=== PATIENT | female | born 1960 | race Caucasian/White ===

== ENCOUNTER → 2017-03-11 | Outpatient (CLI) | payer BC ==
--- NOTE | 2017-03-11 17:28 | DIAGNOSTIC IMAGING REPORT ---
R HAND MIN 3 VIEWS ROUTINE HISTORY: 56 years-old Female FOREIGN BODY OF RIGHT HAND patient reports a palpable abnormality near the right second PIP joint COMPARISON: None available TECHNIQUE: 3 views of the right hand FINDINGS: Mild periarticular osteopenia. Mild to moderate triscaphe and first carpometacarpal osteoarthritis with subchondral sclerosis and subcortical cystic change. Mild interphalangeal degenerative changes are noted throughout all the digits. No acute fracture, dislocation or foreign body identified. IMPRESSION: 1. No acute fracture or subluxation. 2. No radiopaque foreign body identified. 3. Mild to moderate degenerative changes about the hand and wrist with mild periarticular osteopenia. The above report was generated using voice recognition software. It may contain grammatical, syntax or spelling errors. Electronically signed by: Jonathan Mendez M.D. 03/11/2017 5:27 PM Dictated Date/Time: 03/11/2017 5:24 PM
== END | disposition home or self-care (01) ==
LOC: C.RAD1850 16:39
PROVIDERS: ATTEND Internal Medicine
DX: S60.551A Superficial foreign body of right hand, initial encounter (principal); X58.XXXA Exposure to other specified factors, initial encounter

== ENCOUNTER → 2017-07-21 | Outpatient (CLI) | payer BC | END | disposition home or self-care (01) | LOC: C.PATHSPEC 17:27 | PROVIDERS: ATTEND Physician Assistant | DX: D23.5 Other benign neoplasm of skin of trunk (principal); L57.0 Actinic keratosis ==

== ENCOUNTER → 2017-10-29 | Outpatient (CLI) | payer BC | END | disposition home or self-care (01) | LOC: C.PATHSPEC 17:27 | PROVIDERS: ATTEND Surgery | DX: D23.62 Other benign neoplasm of skin of left upper limb, including shoulder (principal) ==

== ENCOUNTER 2022-09-29 06:02 | Observation (INO) ==
--- NOTE | 2022-08-26 11:58 | PAT Medication Instructions ---
Medication Instructions Date of Service August 26, 2022 Home Medications Medication Instructions Recorded fluticasone furoate 27.5 2 sprays intranasal DAILY PRN 05/23/20 mcg/actuation nasal nasal congestion #5.9 mL spray,suspension (Flonase Sensimist) nmekafxslw-tnwphvxcfprif-eqkxdnmk 1 - 2 tab PO BID PRN headache #40 08/12/22 50 mg-325 mg-40 mg tablet tabs triamcinolone acetonide 0.5 % 1 applic topical BID #15 grams 08/20/22 topical cream calcium carbonate 600 mg calcium (1,500 mg) tablet 600 mg PO BID cetirizine 10 mg tablet 10 mg PO HS PRN Allergic Symptoms fluticasone furoate 27.5 mcg/actuation nasal spray,suspension (Flonase Sensimist) 2 sprays intranasal DAILY PRN nasal congestion ascorbic acid (vitamin C) 500 mg tablet (Vitamin C) 500 mg PO QAM ibuprofen 200 mg tablet 400 mg PO Q6H PRN Pain multivitamin 1 tab PO QAM ocrbspromh-vqqluepfgnlup-mskmbkgs 50 mg-325 mg-40 mg tablet 1 - 2 tab PO BID PRN headache triamcinolone acetonide 0.5 % topical cream 1 applic topical BID baclofen 10 mg tablet 10 mg PO HS PRN Muscle Spasm duloxetine 60 mg capsule,delayed release 60 mg PO HS ASK your surgeon for instructions ibuprofen 200 mg tablet 400 mg PO Q6H PRN Pain STOP taking 24 hours before surgery triamcinolone acetonide 0.5 % topical cream 1 applic topical BID DO NOT take the morning of surgery calcium carbonate 600 mg calcium (1,500 mg) tablet 600 mg PO BID ascorbic acid (vitamin C) 500 mg tablet (Vitamin C) 500 mg PO QAM multivitamin 1 tab PO QAM baclofen 10 mg tablet 10 mg PO HS PRN Muscle Spasm Take morning of surgery With a small sip of water, OTHERWISE NOTHING TO EAT OR DRINK AFTER MIDNIGHT: fluticasone furoate 27.5 mcg/actuation nasal spray,suspension (Flonase Sensimist) 2 sprays intranasal DAILY PRN nasal congestion iqwhwzdhsl-lhwohsccrtvhs-klwvwqzz 50 mg-325 mg-40 mg tablet 1 - 2 tab PO BID PRN headache (if needed) Take evening before surgery calcium carbonate 600 mg calcium (1,500 mg) tablet 600 mg PO BID cetirizine 10 mg tablet 10 mg PO HS PRN Allergic Symptoms (if needed) fluticasone furoate 27.5 mcg/actuation nasal spray,suspension (Flonase Sensimis t) 2 sprays intranasal DAILY PRN nasal congestion (if needed) utbgeoffii-twhjbsjlthvtq-jorctkxc 50 mg-325 mg-40 mg tablet 1 - 2 tab PO BID PRN headache (if needed) baclofen 10 mg tablet 10 mg PO HS PRN Muscle Spasm (if needed) duloxetine 60 mg capsule,delayed release 60 mg PO HS Other Notes If you have any questions please call us at [phone] or [phone] or [phone] or [phone]
--- NOTE | 2022-09-02 09:36 | Anesthesiology Consultation ---
Date of Service September 02, 2022 Assessment & Plan (1) Encounter for pre-operative examination: - COVID screening: Per assessment on 09/02: Travel screen negative. Patient vaccinated. At surgeon discretion if preop Covid testing being done. Patient reports that 8 days ago (09/25) she had Covid exposure at outdoor gathering (person tested Covid positive the following day). Patient has remained asymptomatic and has had negative Covid home tests since. Covid test done at PAT 09/02/22 was negative. Patient able to proceed with surgery as scheduled without further preop Covid testing done as long as patient remains asymptomatic. She was advised to contact PAT/surgeon if development of symptoms prior to surgery. - Outpatient joint assessment: Pt currently scheduled for inpatient pathway. If surgeon requests review for outpatient joint pathway, patient is an acceptable candidate for outpatient joint program from anesthesia standpoint. Chart Review Chart Review: Acceptable Risk for Surgery and Patient seen in Pre Admission Testing Teaching & Discussion Pre-Anesthesia Teaching/Discussion Notes: Instructed NPO after midnight before surgery,except medications with 15 cc of water. Medication instructions provided according to the PAT guidelines. History Surgery Operation Date: 09/29/22 07:00 Proposed Procedures p Right Total Knee Arthroplasty - Rikki Padilla, Height/Weight Height: 5 ft 4 in Weight: 80.6 kg Allergies Allergy/AdvReac Type Severity Reaction Status Date / Time meperidine AdvReac Intermediate Headache Verified 08/20/22 15:14 oxycodone [From Percocet] AdvReac Mild N/V Verified 09/01/22 10:36 Medications Home Medications Medication Instructions Recorded Confirmed Last Taken calcium carbonate 600 mg calcium 600 mg PO BID 09/14/18 08/22/22 09/11/20 18:00 (1,500 mg) tablet cetirizine 10 mg tablet 10 mg PO HS PRN Allergic Symptoms 09/14/18 08/22/22 Unknown #30 tabs fluticasone furoate 27.5 2 sprays intranasal DAILY PRN 05/23/19 08/22/22 Unknown mcg/actuation nasal nasal congestion #5.9 mL spray,suspension (Flonase Sensimist) ascorbic acid (vitamin C) 500 mg 500 mg PO QAM 08/22/20 08/22/22 09/11/20 08:00 tablet (Vitamin C) ibuprofen 200 mg tablet 400 mg PO Q6H PRN Pain 05/26/21 05/26/23 06/14/21 18:00 multivitamin 1 tab PO QAM 08/22/20 08/22/22 09/11/20 08:00 cmwrsmjhfw-znzmngkirxnsg-gclzlpfs 1 - 2 tab PO BID PRN headache #40 08/12/22 08/22/22 Unknown 50 mg-325 mg-40 mg tablet tabs triamcinolone acetonide 0.5 % 1 applic topical BID #15 grams 08/20/22 08/22/22 Unknown topical cream baclofen 10 mg tablet 10 mg PO HS PRN Muscle Spasm 08/22/22 08/22/22 Unknown duloxetine 60 mg capsule,delayed 60 mg PO HS 08/22/22 08/22/22 Unknown release Past Medical History Medical History Anxiety Asthma Stable Degeneration of cervical intervertebral disc Depression Dermatofibroma of back s/p removal Disc degeneration, lumbar History of gastroesophageal reflux (GERD) No current issues History of squamous cell carcinoma Migraine headache Hx Osteoarthritis Osteopenia Tinnitus TMJ syndrome + clicking, 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 Exercise / Class Metabolic Activity II 4-5 Yardwork/Stairs/Walk up hill (one FS (no CP, no SOB)) Past Family History Family History Grandfather (Maternal) Myocardial infarction Cancer Diphtheria Poliomyelitis Migraine Brother Allergic rhinitis FHx: allergies Father FHx: allergies Asthma Atrial fibrillation Sinus disorder Daughter FHx: allergies Mother Cataract Hypertension Migraine Transient ischemic attack (TIA) Stroke Grandmother (Maternal) Diabetes Hypertension Osteoporosis Transient ischemic attack (TIA) Grandfather (Paternal) Heart disease Denies family history of Ovarian cancer Prostate cancer Clotting disorder Breast cancer Lung cancer Past Surgical History Surgical History H/O cystoscopy Dr. Priyanka BURK, stretched Urethra H/O esophagogastroduodenoscopy Dr. Quinn H/O laparoscopy x3 H/O local excision of skin lesion in office left shoulder 10/29/2017 H/O ovarian cystectomy H/O tooth extraction age 27 History of colonoscopy History of hysterectomy Dr. Gonzalez/ [employer] History of oral surgery History of squamous cell carcinoma excision Nausea and vomiting after administration of anesthetic agent S/P right knee arthroscopy (09/06/20) S/P rotator cuff repair Right shoulder - 03/17/2019 Past Anesthesia History No Family Hx of Anesthesia Complications and Other (crying with laparoscopy emergence, no issues with subsequent surgeries/anesthesia) History of PONV No Hx of Motion Sickness and History of PONV Social History Smoking Status: Never smoker Do You Dip or Chew Tobacco: No Hx Alcohol Use: Yes Alcohol type: beer and wine alcohol intake frequency: a few times a week Hx Substance Use: No substance use type: does not use Review of Systems Patient denies chest pain, shortness of breath, dyspnea on exertion, fever, chills, cough, wheezing, palpitations. Physical Exam Vital Signs VITALS BP 148/84 P 80 TEMP 98.3 SP02 100%RA RESP 16 PHYSICAL Full cervical extension range of motion. Full TMJ range of motion. TMD 3 finger breaths Mallampati Score 3 Dentition: intact, + crowns (sides/molars) Lungs: clear throughout to auscultation Cardiac: regular rate and rhythm, no murmurs noted Spine: normal Carotid arteries: negative bruit Extremities: no LE edema Lab Results Anesthesia Preop Results Results Anesthesia Widget: WBC 6.71 K/ul (4.8-10.8) 09/02/22 Hgb 13.3 g/dl (12.0-16.0) 09/02/22 Hct 40.1 % (37.0-47.0) 09/02/22 Plt 216 K/uL (130-400) 09/02/22 Na 138 mmol/L (136-145) 09/02/22 K 4.3 mmol/L (3.5-5.1) 09/02/22 Cl 105 mmol/L (98-107) 09/02/22 CO2 29 mmol/L (21-32) 09/02/22 BUN 15 mg/dl (6-23) 09/02/22 Creat 0.62 mg/dl (0.6-1.2) 09/02/22 Glucose Level 84 mg/dl (70-99(Fasting)) 09/02/22 PT 10.6 Seconds (9.0-12.0) 09/02/22 PTT 28.7 Seconds (21.0-31.0) 09/02/22 INR 1.0 (0.9-1.1) 09/02/22 Blood Type O Positive 09/02/22 Antibody Screen NEGATIVE 09/02/22 Testing Electrocardiogram Date: 09/02/22 NSR at 76bpm. Chest X-Ray Date: 09/02/22 FINDINGS: PA and lateral chest radiographs are obtained. No prior studies are available for comparison at the time of dictation. The cardiomediastinal silhouette is unremarkable. The lungs and pleural spaces are clear. There is no pneumothorax. The skeletal structures are osteopenic. The bony thorax appears intact. IMPRESSION: No active disease in the chest.
--- NOTE | 2022-09-25 17:23 | History & Physical Report ---
Date of Service September 25, 2022 Assessment & Plan (1) Osteoarthritis of right knee: We will proceed with a right total knee arthroplasty. Postoperatively she will be started on aspirin for DVT prophylaxis and kept overnight in the hospital for postop medical management. She plans to go to [facility] physical therapy upon discharge. History of Present Illness Chief Complaint: Osteoarthritis of the right knee. Primary Care Provider: Patrick Marquez MD Ender is a pleasant 62-year-old female who underwent a right knee arthroscopy in 2020. He was noted at that time she had advanced arthritis of her right knee. Unfortunately she has continued to struggle with her right knee. She has failed years of conservative treatment. She has elected proceed with a right total knee arthroplasty.. Allergies Allergy/AdvReac Type Severity Reaction Status Date / Time meperidine AdvReac Intermediate Headache Verified 08/20/22 15:14 oxycodone [From Percocet] AdvReac Mild N/V Verified 09/01/22 10:36 Home Medications Medication Instructions Recorded Confirmed Type calcium carbonate 600 mg calcium 600 mg PO BID 09/14/18 08/22/22 History (1,500 mg) tablet cetirizine 10 mg tablet 10 mg PO HS PRN Allergic Symptoms 09/14/18 08/22/22 History #30 tabs fluticasone furoate 27.5 2 sprays intranasal DAILY PRN 05/23/19 08/22/22 Rx mcg/actuation nasal nasal congestion #5.9 mL spray,suspension (Flonase Sensimist) ascorbic acid (vitamin C) 500 mg 500 mg PO QAM 08/22/20 08/22/22 History tablet (Vitamin C) ibuprofen 200 mg tablet 400 mg PO Q6H PRN Pain 08/22/20 08/22/22 History multivitamin 1 tab PO QAM 08/22/20 08/22/22 History kprzgymjxl-btxtymwzuacmh-jnfnnupe 1 - 2 tab PO BID PRN headache #40 08/12/22 08/22/22 Rx 50 mg-325 mg-40 mg tablet tabs triamcinolone acetonide 0.5 % 1 applic topical BID #15 grams 08/20/22 08/22/22 Rx topical cream baclofen 10 mg tablet 10 mg PO HS PRN Muscle Spasm 08/22/22 08/22/22 History duloxetine 60 mg capsule,delayed 60 mg PO HS 08/22/22 08/22/22 History release Past Med/Surg History Medical History Anxiety Asthma Stable Degeneration of cervical intervertebral disc Depression Dermatofibroma of back s/p removal Disc degeneration, lumbar History of gastroesophageal reflux (GERD) No current issues History of squamous cell carcinoma Migraine headache Hx Osteoarthritis Osteopenia Tinnitus TMJ syndrome + clicking, 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 rPiyanka BURK, stretched Urethra H/O esophagogastroduodenoscopy Dr. Quinn H/O laparoscopy x3 H/O local excision of skin lesion in office left shoulder 10/29/2017 H/O ovarian cystectomy H/O tooth extraction age 27 History of colonoscopy History of hysterectomy Dr. Gonzalez/ [employer]ICIAN History of oral surgery History of squamous cell carcinoma excision Nausea and vomiting after administration of anesthetic agent S/P right knee arthroscopy (09/06/20) S/P rotator cuff repair Right shoulder - 03/17/2019 Family History Grandfather (Maternal) Myocardial infarction Cancer Diphtheria Poliomyelitis Migraine Brother Allergic rhinitis FHx: allergies Father FHx: allergies Asthma Atrial fibrillation Sinus disorder Daughter FHx: allergies Mother Cataract Hypertension Migraine Transient ischemic attack (TIA) Stroke Grandmother (Maternal) Diabetes Hypertension Osteoporosis Transient ischemic attack (TIA) Grandfather (Paternal) Heart disease Denies family history of Ovarian cancer Prostate cancer Clotting disorder Breast cancer Lung cancer Social History Smoking Status: Never smoker Second Hand Exposure: No; Do You Dip or Chew Tobacco: No; Tobacco Cessation Education Requested by Patient: No Hx Alcohol Use: Yes Alcohol type: beer and wine Hx Substance Use: No Preferred Language: Bahamian Communication Ability: Effective Visual Impairment: Limited Hearing Ability: Normal 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 Physical Exam On physical examination the right knee, she has no deformity. She has good motion of 0 120 degrees. No instability. Pain of the distal femoral condyles.. Constitutional WD/WN, vitals as above Eyes PERRL, conjunctivae normal, anicteric sclerae ENMT external ear and nose normal, oropharynx normal Neck trachea midline, no thyromegaly Respiratory normal respiratory effort, lungs clear to auscultation Cardiovascular RRR, no murmur, no edema Gastrointestinal (Abdomen) normal bowel sounds, soft, nontender, no hepatosplenomegaly Skin no rashes, warm and dry Psychiatric A+Ox3, euthymic affect Results & Data Results & Data Laboratory Results . Diagnostic Findings X-rays of the right knee show mild osteoarthritis with mild joint space narrowing.. PG Care Time/CCT Total # of Minutes Spent Total Time Spent with Patient: Total time spent is greater than 50% in coordination of care (as documented) at patient's floor/unit and/or counseling patient: Coding Level of Care Code None Diagnoses Osteoarthritis of right knee M17.11
[~2022-09-29 06:02] MED LIST: ACETAMINOPHEN 500 MG TAB PO SCH; FAMOTIDINE 20 MG TAB PO SCH; GABAPENTIN 600 MG DOSE PO SCH; LR 500ML BOLUS, THEN 15ML/HR IV SCH; LR 60ML/HR IV SCH; ORTHO JOINT MIX INFIL SCH; TRANEXAMIC ACID 1,000 MG **IV Intra-op IV SCH; TRANEXAMIC ACID 1,000 MG **IV Pre-op IV SCH; ceFAZolin 2000MG 2,000 MG/15 ML SYR IV SCH; dexAMETHasone 4 MG TAB PO SCH
[2022-09-29] MEDS ORDERED: ROPIVACAINE 0.5% 5 MG/ML 30 ML VIAL ONE (06:18)
[2022-09-29] MEDS ORDERED: KETAMINE 50 MG/5 ML SYRINGE ONE (06:43)
[2022-09-29] MEDS ORDERED: MIDAZOLAM HCL 1 MG/ML 2ML VIAL ONE (06:43)
[2022-09-29] MEDS ORDERED: ONDANSETRON INJ 2 MG/ML 2 ML VIAL ONE (06:48)
[2022-09-29] MEDS ORDERED: PROPOFOL IV EMULSION 10 MG/ML 20 ML VIAL IV ONE (06:48)
[2022-09-29] MEDS ORDERED: LIDOCAINE 2% 2 ML VIAL/AMP(20MG/ML) INFIL ONE (06:48)
[2022-09-29] MEDS ORDERED: GLYCOPYRROLATE 0.2 MG/ML VIAL ONE (06:48)
--- NOTE | 2022-09-29 06:52 | History & Physical Bridge Note ---
Date of Service September 29, 2022 History & Physical Bridge Note I have examined the patient, reviewed the History & Physical and in the interval since the performance of the History & Physical I have noted the following changes of clinical significance: no changes noted
[2022-09-29] MEDS ORDERED: ORTHO JOINT ANESTHETIC ONE (07:07)
[2022-09-29] MEDS ORDERED: fentaNYL citrate PF 100 MCG/2 ML VIAL IV PRN (07:13)
[2022-09-29] MEDS ORDERED: HYDROmorphone INJ 2 MG/ML SYR/VIAL IV PRN (07:13)
[2022-09-29] MEDS ORDERED: ATROPINE SULFATE 0.1 MG/ML 10ML SYR IV PRN (07:13)
[2022-09-29] MEDS ORDERED: ePHEDrine sulfate 50 MG/ML AMP IV PRN (07:13)
[2022-09-29] MEDS ORDERED: ONDANSETRON INJ 2 MG/ML 2 ML VIAL IV PRN ×2 (07:13→11:57)
[2022-09-29] MEDS ORDERED: BUPIVACAINE 0.5 % 5 MG/1 ML PF 10ML VIAL ONE (08:21)
--- NOTE | 2022-09-29 10:06 | Operative Report ---
PG Post Operative Report Pre & Post Diagnosis Operation Date: 09/29/22 08:00 Pre-Op Diagnosis: Osteoarthritis Right Knee Post-Op Diagnosis: Osteoarthritis Right Knee I identified the patient and participated in the time-out.: Yes Procedure Operation Date: 09/29/22 08:00 Actual Procedures p Right Total Knee Arthroplasty(Right) - Rikki Padilla DO Surgeon Rikki Padilla DO Well [employer] Head Rikki Torres PA-C Estimated Blood Loss 30 Findings Consistent with Post-Op Diagnosis Specimens Right femoral and tibial bone Description of Procedure Implants used: I used a [employer] Persona total knee arthroplasty system with a size 8 narrow femur, D tibia, 28 oval patella, and a size 11 medial congruent polyethylene bearing. All components were cemented in place with Biomet cement. Ender arrived [facility] for the above procedure. She was seen in the preoperative holding area and the operative extremity was identified and signed. She was given a preoperative antibiotic, TXA, a spinal anesthetic and an adductor nerve block. She was taken back to the operating room and laid on the table in supine position. She was given basic sedation. The operative knee was then prepped and draped in sterile fashion. A timeout was done, and the patient and the operative extremity was properly identified. A midline incision was made directly over the patella. Dissection was taken down to the extensor mechanism. A midvastus arthrotomy was used. The medial retinaculum was released and the fat pad was mostly excised. The knee was flexed and the ACL, PCL, and meniscus were removed. A drill was sent down the center of the femoral canal followed by an intramedullary misty. Off that misty a distal femoral cutting block was placed. 9 mm was resected off the distal femur at 5 of valgus. A posterior referencing AP sizing guide was then placed on the distal femur. The femur measured to be a size 8. 2 drill holes were placed in 3 of external rotation. A 4-in-1 cutting block was then impacted into place. Anterior, posterior, and chamfer cuts were then made. The proximal tibia was then exposed. An external tibial alignment guide was placed. A tibial cut guide was then anchored in place and the proximal tibia was then resected. The posterior aspect of the knee was then opened up and any additional meniscus fragments and osteophytes were removed. The tibia measured to be a size D. The tibial plate was then placed in the appropriate rotation and the tibia was drilled and punched. Trial components were then placed. I used a size 11 medial congruent polyethylene insert. The knee was brought through a full range of motion and felt to be stable. The peg holes for the femoral component were then drilled. The patella was then everted and 9 mm was resected off the posterior aspect of the patella. The patella measured to be a size 28 oval. 3 peg holes were then drilled. A trial patella was placed. The knee was once again brought through a full range of motion and felt to be stable. Trial components were then removed. The surrounding soft tissues were injected with 100 cc of an orthopedic pain control cocktail. All components were then cemented into place with Biomet cement. The final polyethylene insert was then snapped into place. Once cement was dry the tourniquet was deflated. Hemostasis was obtained. A dilute betadyne lavage was then done for 3 minutes. The joint was then irrigated with normal saline solution. The midvastus arthrotomy was then closed with #1 Vicryl suture. The skin was closed with 2-0 Vicryl, 3-0V lock suture, and olive. A soft compressive dressing was placed. She was then transferred to a hospital bed and taken to the postanesthesia care unit in stable condition. She tolerated the procedure well. Rikki Torres PA-C, was present for the entire procedure. He was critical for patient positioning, prepping, draping, retraction exposure, wound closure and application of sterile dressing. I attest to the content of the Intraoperative Record and any orders documented therein. Any exceptions are noted below.
[2022-09-29] MEDS ORDERED: HALOPERIDOL LACTATE 5 MG/ML 1 ML VIAL IV STA (10:55)
--- NOTE | 2022-09-29 11:28 | XRay Report ---
XR knee RT 1 or 2V routine CLINICAL HISTORY: Surgical Post Op TECHNIQUE: 2 views of the right knee were obtained. Comparison: Comparison is made to knee radiographs 07/16/2022 FINDINGS: Patient is status post total knee arthroplasty with expected postsurgical changes including soft tiss ue swelling and subcutaneous emphysema. No periarticular lucency or hardware fracture is seen. IMPRESSION: Expected postoperative appearance status post placement of total knee arthroplasty. ACT 112: Negative or not required by law. Electronically signed by: Sixto Funes M.D. 09/29/2022 11:26 AM
--- NOTE | 2022-09-29 11:55 | Anesthesiology Progress Note ---
Date of Service September 29, 2022 Anesthesia Post Procedure Vital Signs Vital Signs: Temp Pulse Pulse Resp BP Pulse Ox O2 Del Method 09/29/22 11:35 36.6 C 83 13 109/79 97 Room Air 09/29/22 11:25 36.6 C 79 14 115/63 98 Room Air 09/29/22 10:45 82 13 119/75 98 Oxymask 09/29/22 11:15 36.6 C 84 23 113/69 96 Room Air 09/29/22 11:05 36.6 C 76 14 120/72 96 Nasal Cannula 09/29/22 10:55 73 18 116/78 90 Nasal Cannula 09/29/22 10:35 86 13 122/78 100 Oxymask 09/29/22 10:26 36.7 C 100 H 13 121/82 96 Oxymask 09/29/22 06:25 37.0 C 85 20 150/97 H 98 Room Air O2 Flow Rate 09/29/22 11:35 0 09/29/22 11:25 0 09/29/22 10:45 3 09/29/22 11:15 0 09/29/22 11:05 2 09/29/22 10:55 2 09/29/22 10:35 4 09/29/22 10:26 5 09/29/22 06:25 Pain Intensity Right Knee: Pain Intensity: 0 Transfer of Care Handoff Completed per policy Notes Mental Status: alert / awake / arousable and participated in evaluation Nausea / Vomiting: adequately controlled Pain: adequately controlled Airway Patency, RR, SpO2: stable & adequate BP & HR: stable & adequate Hydration State: stable & adequate Neuraxial Anesthesia: was administered and sensory block is resolving Anesthetic Complications: no major complications apparent and Pt Satisfied with anesthetic care
[2022-09-29] MEDS ORDERED: MAGNESIUM HYDROXIDE SUSP 30 ML UDC PO PRN (11:57)
[2022-09-29] MEDS ORDERED: METOCLOPRAMIDE HCL INJ 5 MG/ML 2 ML VIAL IV PRN (11:57)
[2022-09-29] MEDS ORDERED: CETIRIZINE HCL 10 MG TABLET PO PRN (11:57)
[2022-09-29] MEDS ORDERED: BACLOFEN 10 MG TAB PO PRN (11:57)
[2022-09-29] MEDS ORDERED: bisacodyL 10 MG SUPP PR PRN (11:57)
[2022-09-29] MEDS ORDERED: NALOXONE HCL 0.4 MG/1 ML VIAL/CARP IV PRN (11:57)
[2022-09-29] MEDS ORDERED: BUTALBITAL/ACETAMIN/CAFFEINE TAB PO PRN (11:57)
[2022-09-29] MEDS ORDERED: FLUTICASONE PROPIONATE NA SPR 16 GM BTL PRN (12:07)
[2022-09-29] MEDS: KETOROLAC 30 MG/ML VIAL IV SCH ×2 (12:49→18:58)
[2022-09-29] MEDS: SODIUM CHLORIDE 0.9% 1000ML 1,000 ML IV SCH ×2 (12:50→23:59)
[2022-09-29] MEDS: ACETAMINOPHEN 500 MG TAB PO SCH ×2 (14:25→22:26)
[2022-09-29] MEDS: ceFAZolin 2000MG 2,000 MG/15 ML SYR IV SCH (16:43)
[2022-09-29] MEDS: traMADol HCL 50 MG TABLET PO PRN (16:45)
[2022-09-29] MEDS: DOCUSATE SODIUM 100 MG CAP PO SCH (20:40)
[2022-09-29] MEDS: ASPIRIN 81 MG ECTAB PO SCH (20:40)
[2022-09-29] MEDS: TRIAMCINOLONE ACET 0.5% CR 15 GM TUBE TOP SCH (20:41)
[2022-09-29] MEDS ORDERED: SENNA 8.6 MG TAB PO SCH (21:00)
[2022-09-29] MEDS ORDERED: DULoxetine HCL 60 MG CAP PO SCH (21:00)
[2022-09-30] MEDS: ceFAZolin 2000MG 2,000 MG/15 ML SYR IV SCH
[2022-09-30] MEDS: ACETAMINOPHEN 500 MG TAB PO SCH (06:05)
[2022-09-30] MEDS: KETOROLAC 30 MG/ML VIAL IV SCH ×2 (06:05)
[2022-09-30] MEDS ORDERED: dexAMETHasone 4 MG TAB PO SCH (08:00)
--- NOTE | 2022-09-30 08:20 | Orthopedic Progress Note ---
Date of Service September 30, 2022 Assessment & Plan (1) Status post right knee replacement: Overall she is doing very well. She is not having much pain in the right knee. She will be seen by physical therapy today for ambulation and range of motion exercises. The nursing staff can change her dressing after physical therapy. She is on aspirin for DVT prophylaxis. She can be discharged home later today. She will follow-up orthopedics in 2 weeks. Iraida Handley was seen and examined at bedside this morning. Overall she is doing very well. She is not having much pain in the right knee. She has been up and ambulating. She has no complaints.. Review of Systems All systems reviewed & are unremarkable except as noted in HPI & below. Physical Exam On physical examination of the right knee, the dressing is clean and dry. Her leg is out full extension. She has active dorsiflexion plantarflexion of her right ankle.. Results & Data Results & Data Laboratory Results . Diagnostic Findings Postoperative x-rays of the right knee show the prosthesis to be in anatomic alignment without any evidence of fracture, screws, or loosening.. PG Care Time/CCT Total # of Minutes Spent Total Time Spent with Patient: Total time spent is greater than 50% in coordination of care (as documented) at patient's floor/unit and/or counseling patient: Coding Level of Care Code 21437 Post Operative Follow-Up Diagnoses Status post right knee replacement Z96.651
--- NOTE | 2022-09-30 08:21 | Discharge Summary ---
Date of Service September 30, 2022 Admission HPI (Per Admitting) Ender is a pleasant 62-year-old female who underwent a right knee arthroscopy in 2020. He was noted at that time she had advanced arthritis of her right knee. Unfortunately she has continued to struggle with her right knee. She has failed years of conservative treatment. She has elected proceed with a right total knee arthroplasty.. Admission Exam (Per Admitting) On physical examination the right knee, she has no deformity. She has good motion of 0 120 degrees. No instability. Pain of the distal femoral condyles.. Principal Diagnosis Same as "Discharge Diagnosis" noted below under Discharge Instructions. Discharge Exam On physical examination of the right knee, the dressing is clean and dry. Her leg is out full extension. She has active dorsiflexion plantarflexion of her right ankle.. Discharge Data Procedures Performed Operation Date: 09/29/22 08:00 Actual Procedures p Right Total Knee Arthroplasty(Right) - Rikki Padilla DO Ordered Studies 09/29/22 05:00 US - OR guided needle placemen Routine Hospital Course (1) Status post right knee replacement: On September 29, 2022 Ender arrived at [facility] and underwent a right knee replaced without complication. She had a spinal anesthetic. Postoperatively she was started on aspirin for DVT prophylaxis and transferred to the general orthopedic floors. Her hospital course was uneventful. On postop day #1, her vital signs were stable and her pain was well controlled. She was able to participate well with physical therapy doing ambulation and range of motion exercises. She was then discharged home. She will follow-up with orthopedics in 2 weeks. PG Care Time/CCT Total # of Minutes Spent Total Time Spent with Patient: Total time spent is greater than 50% in coordination of care (as documented) at patient's floor/unit and/or counseling patient: Discharge Plan Discharge Items Patient Disposition: Home - Home Health Services Reason For Visit: DJD Right Knee Discharge Diagnosis: Right knee replacement Activity: Per Instructions section Non-emergency contact: Surgeon Call non-emergency contact if: your wound has increased redness and your wound has increased drainage Follow-up/Referrals: Patrick Marquez MD [Primary Care Provider] - Diet: Regular Addtl Attending Provider Instructions: Activity and Therapy Recommendations: * If you are using [facility] then therapy will be provided at your home until they feel you have accomplished all of your goals. * If you are using [facility] then Physical Therapy will be provided until they feel you are ready to start Outpatient Physical Therapy. * If you are not using home therapy then Outpatient Physical Therapy should start about 3-5 days from your day of surgery. Therapy will last about 6-10 weeks * It is important not to put a pillow under your knee when you are relaxing or sleeping. It is just as important to make sure you are getting your knee perfectly straight as it is to regain your knee bend. * You were shown a series of exercises in the hospital. Do these exercises three times each day including the exercises you were shown in physical therapy. * Get up and walk several times each day. For the first four weeks, try not to stand or walk for more than one hour at a time. If you do stand or walk for more than one hour, you will not hurt anything, but your leg will likely swell. * As you feel comfortable, you may change from the walker or crutches to a cane and then to independent walking. Medications: * Narcotic You will likely be sent home from the hospital with a prescription for the narcotic pain medication that worked best throughout your stay. * Aspirin Most patients will be required to take Aspirin 81mg twice a day for 6 weeks after surgery. This is obtained czfa-ins-navlcgo and a prescription is not necessary. * Other medications may be prescribed for specific circumstances. If you have any questions, please call the office at . * Resume previous home medications unless otherwise instructed TEDs/Elastic Stockings: The white elastic stockings help limit swelling and prevent blood clots from forming in your legs.~ The more you wear them, the more they work. Wear them for six weeks. Dressing Care: The dressing can be changed after physical therapy on postop day #1. Daily dry dressing changes for a few days, especially if the incision is still draining some. If the incision is not draining then you may leave the olive open to air. If there is a little bit of drainage or if the olive are getting stuck on your clothing then cover the incision with a dry dressing. The olive will be removed at your 2 week follow-up appointment. Showering: You may shower 5 days from the day of surgery as long as the incision is no longer draining. You may shower with the olive exposed. Let soapy water run over the olive and pat them dry. Do not scrub or soak the incision. Things To Watch For: * Drainage from the incision site that occurs more than one week after your surgery. * Increased redness at the incision site. * Fever above 102 degrees Fahrenheit. * Unusual chest pain or shortness of breath. * Call [facility] at with any of the above problems Follow-Up Visit: Follow-up with Dr. Padilla's PA (Rikki Torres) 2-3 weeks after your day of surgery. He will remove your olive and answer any questions. If you have any additional questions or concerns, Dr Padilla is usually in the office at the same time and will be available An appointment was probably scheduled when you signed-up for surgery in the office. If you have any questions call Office Instructions: More detailed instructions as well as Frequently Asked Questions were provided in a folder by our office when you signed-up for surgery. Please review these instructions when you get home. If you have any further questions or concerns, please feel free to call the office at [phone] Pending Studies at Discharge: No Stand-Alone Forms: [facility], Smoking Cessation Medications and DC Order Prescriptions: New aspirin 81 mg Tablet,Delayed Release (Dr/Ec) 81 mg PO BID 42 Days Qty: 84 0RF tramadol 50 mg tablet 50 mg PO Q6H PRN (Reason: pain) Qty: 30 0RF Continued kjbukfxctj-mbbkstqztwjco-bpso 50-325-40 mg tablet 1 - 2 tab PO BID PRN (Reason: headache) Qty: 40 0RF Rx Instructions: no more than 2 days per week calcium carbonate 600 mg calcium (1,500 mg) tablet 600 mg PO BID cetirizine 10 mg tablet 10 mg PO HS PRN (Reason: Allergic Symptoms) Qty: 30 Patient Comments: Patient has not taken in over 1 year triamcinolone acetonide 0.5 % cream 1 applic topical BID Qty: 15 0RF Patient Comments: Patient states she never has used Flonase Sensimist 27.5 mcg/actuation spray,suspension 2 sprays INTNAS DAILY PRN (Reason: nasal congestion) Qty: 5.9 3RF Patient Comments: Patient states she has not used in over 1 year Rx Instructions: into each nostril baclofen 10 mg tablet 10 mg PO HS PRN (Reason: Muscle Spasm) Patient Comments: Patient states she has not had for months duloxetine 60 mg capsule,delayed release(DR/EC) 60 mg PO HS multivitamin Tablet 1 tab PO QAM ascorbic acid (vitamin C) [Vitamin C] 500 mg Tablet 500 mg PO QAM ibuprofen 200 mg Tablet 400 mg PO Q6H PRN (Reason: Pain) Admission Data Admit Date/Time: 09/29/22 10:30 Attending Provider: Rikki Padilla Admit Provider: Rikki Padilla Primary Care Provider: Patrick Marquez V.
[2022-09-30] MEDS: ASPIRIN 81 MG ECTAB PO SCH (08:22)
[2022-09-30] MEDS: DOCUSATE SODIUM 100 MG CAP PO SCH (08:22)
[2022-09-30] MEDS: TRIAMCINOLONE ACET 0.5% CR 15 GM TUBE TOP SCH (08:24)
[2022-09-30] MEDS ORDERED: PNEUMOCOCCAL POLYSACCHARIDES 25 MCG/0.5 ML VIAL/SYR IM ONE (09:00)
[2022-09-30] MEDS ORDERED: MULTIVITAMIN TAB PO SCH (09:00)
[2022-09-30] MEDS: traMADol HCL 50 MG TABLET PO PRN (10:30)
== END 2022-09-30 10:56 | disposition home health service (06) ==
LOC: ASU 06:02 → 3E 06:02

== ENCOUNTER 2023-04-06 05:18 | Observation (INO) ==
--- NOTE | 2023-03-05 09:29 | PAT Medication Instructions ---
Medication Instructions Date of Service March 05, 2023 Home Medications Medication Instructions Recorded fluticasone furoate 27.5 2 sprays intranasal DAILY PRN 05/23/20 mcg/actuation nasal nasal congestion #5.9 mL spray,suspension (Flonase Sensimist) baclofen 10 mg tablet 10 mg PO HS PRN Muscle Spasm #30 11/27/22 tabs sumatriptan succinate 50 mg tablet See Rx Instructions PO .COMPLEX 12/17/22 #14 tabs yfzknhatrr-fgmqofxedgyas-ursgdlph 1 - 2 tab PO BID PRN headache #30 12/23/22 50 mg-325 mg-40 mg tablet tabs doxycycline hyclate 100 mg capsule 200 mg (2 x 100 mg) PO ONCE #2 caps 01/21/23 duloxetine 20 mg capsule,delayed 20 mg PO HS #30 caps 01/27/23 release calcium carbonate 600 mg calcium (1,500 mg) tablet 600 mg PO BID cetirizine 10 mg tablet 10 mg PO HS PRN Allergic Symptoms fluticasone furoate 27.5 mcg/actuation nasal spray,suspension (Flonase Sensimist) 2 sprays intranasal DAILY PRN nasal congestion ascorbic acid (vitamin C) 500 mg tablet (Vitamin C) 500 mg PO QAM ibuprofen 200 mg tablet 400 mg PO Q6H PRN Pain multivitamin 1 tab PO QAM baclofen 10 mg tablet 10 mg PO HS PRN Muscle Spasm sumatriptan succinate 50 mg tablet See Rx Instructions PO .COMPLEX sjjlconawq-brzhrmahtfdck-khojfrno 50 mg-325 mg-40 mg tablet 1 - 2 tab PO BID PRN headache doxycycline hyclate 100 mg capsule 200 mg (2 x 100 mg) PO ONCE duloxetine 20 mg capsule,delayed release 20 mg PO HS duloxetine 60 mg capsule,delayed release 60 mg PO QAM olmesartan 5 mg tablet 5 mg PO QPM Continue as directed doxycycline hyclate 100 mg capsule 200 mg (2 x 100 mg) PO ONCE ASK your surgeon for instructions ibuprofen 200 mg tablet 400 mg PO Q6H PRN Pain qrjalzpsja-jfmmzdjcnhsbg-cpwqlzlz 50 mg-325 mg-40 mg tablet 1 - 2 tab PO BID PRN headache DO NOT take the morning of surgery calcium carbonate 600 mg calcium (1,500 mg) tablet 600 mg PO BID ascorbic acid (vitamin C) 500 mg tablet (Vitamin C) 500 mg PO QAM multivitamin 1 tab PO QAM Take morning of surgery With a small sip of water, OTHERWISE NOTHING TO EAT OR DRINK AFTER MIDNIGHT: fluticasone furoate 27.5 mcg/actuation nasal spray,suspension (Flonase Sensimist) 2 sprays intranasal DAILY PRN nasal congestion (if needed) sumatriptan succinate 50 mg tablet See Rx Instructions PO .COMPLEX (if needed) duloxetine 60 mg capsule,delayed release 60 mg PO QAM Take evening before surgery calcium carbonate 600 mg calcium (1,500 mg) tablet 600 mg PO BID cetirizine 10 mg tablet 10 mg PO HS PRN Allergic Symptoms (if needed) fluticasone furoate 27.5 mcg/actuation nasal spray,suspension (Flonase Sensimist) 2 sprays intranasal DAILY PRN nasal congestion (if needed) baclofen 10 mg tablet 10 mg PO HS PRN Muscle Spasm (if needed) sumatriptan succinate 50 mg tablet See Rx Instructions PO .COMPLEX (if needed) duloxetine 20 mg capsule,delayed release 20 mg PO HS olmesartan 5 mg tablet 5 mg PO QPM Other Notes If you have any questions please call us at [phone] or [phone] or [phone] or [phone]
--- NOTE | 2023-03-10 11:56 | Anesthesiology Consultation ---
Date of Service March 10, 2023 Assessment & Plan (1) Encounter for pre-operative examination: - Infectious disease screening: Per assessment on 03/10/23: No known infectious disease contacts or current infectious disease symptoms. No noted recent Covid positive test result. - Outpatient joint pathway: Per OR booking comments, plan for outpatient joint program. Patient seen at [facility] 03/10/23. Patient medically acceptable candidate to proceed as planned outpatient joint pathway but patient notes that she wishes to stay overnight as personal preference. She states surgeon's office was already made aware of this decision but I did additionally send message to Vidya with surgeon's office to have booking status updated to reflect overnight stay postoperatively. - S/P Right TKA (09/29/22): SAB + regional at [facility]. No issues noted per post-op anesthesia progress note. - Upcoming visit with PCP- Awaiting PCP office visit note (DORINDA, appt 03/20). Patient otherwise acceptable risk for surgery. Chart Review Chart Review: Patient seen in Pre Admission Testing Teaching & Discussion Pre-Anesthesia Teaching/Discussion Notes: Instructed NPO after midnight before surgery,except medications with 15 cc of water. Medication instructions provided according to the [facility] guidelines. History Surgery Operation Date: 04/06/23 10:10 Proposed Procedures p OP: Left Total Knee Arthroplasty - Rikki Padilla, Height/Weight Height: 5 ft 4 in Weight: 79.9 kg Allergies Allergy/AdvReac Type Severity Reaction Status Date / Time meperidine AdvReac Intermediate Headache Verified 02/27/23 16:44 oxycodone [From Percocet] AdvReac Mild N/V Verified 02/27/23 16:44 Medications Home Medications Medication Instructions Recorded Confirmed Last Taken calcium carbonate 600 mg calcium 600 mg PO BID 09/14/18 02/27/23 09/28/22 07:00 (1,500 mg) tablet cetirizine 10 mg tablet 10 mg PO HS PRN Allergic Symptoms 09/14/18 02/27/23 Unknown #30 tabs fluticasone furoate 27.5 2 sprays intranasal DAILY PRN 05/23/19 02/27/23 Unknown mcg/actuation nasal nasal congestion #5.9 mL spray,suspension (Flonase Sensimist) ascorbic acid (vitamin C) 500 mg 500 mg PO QAM 08/22/20 02/27/23 09/28/22 07:00 tablet (Vitamin C) ibuprofen 200 mg tablet 400 mg PO Q6H PRN Pain 08/22/20 02/27/23 09/19/22 16:00 multivitamin 1 tab PO QAM 08/22/20 02/27/23 09/28/22 07:00 baclofen 10 mg tablet 10 mg PO HS PRN Muscle Spasm #30 11/27/22 02/27/23 Unknown tabs sumatriptan succinate 50 mg tablet See Rx Instructions PO .COMPLEX 12/17/22 02/27/23 Unknown #14 tabs qwidvytzmp-dzzidadhbszre-grjxhtaf 1 - 2 tab PO BID PRN headache #30 12/23/22 02/27/23 Unknown 50 mg-325 mg-40 mg tablet tabs duloxetine 20 mg capsule,delayed 20 mg PO HS #30 caps 01/27/23 02/27/23 Unknown release duloxetine 60 mg capsule,delayed 60 mg PO QAM 02/27/23 02/27/23 Unknown release olmesartan 5 mg tablet 5 mg PO QPM 02/27/23 02/27/23 Unknown Past Medical History Medical History HTN (hypertension) Depression Osteopenia History of gastroesophageal reflux (GERD) No current issues History of squamous cell carcinoma Anxiety Osteoarthritis Tinnitus Asthma Stable Degeneration of cervical intervertebral disc Dermatofibroma of back s/p removal Disc degeneration, lumbar Migraine headache Hx TMJ syndrome + clicking (left side), 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 Exercise / Class Metabolic Activity II 4-5 Yardwork/Stairs/Walk up hill (one FS (no CP, no SOB)) Past Family History Family History Grandfather (Maternal) Myocardial infarction Cancer Diphtheria Poliomyelitis Migraine Brother Allergic rhinitis FHx: allergies Father FHx: allergies Asthma Atrial fibrillation Sinus disorder Daughter FHx: allergies Mother Cataract Hypertension Migraine Transient ischemic attack (TIA) Stroke Grandmother (Maternal) Diabetes Hypertension Osteoporosis Transient ischemic attack (TIA) Grandfather (Paternal) Heart disease Denies family history of Ovarian cancer Prostate cancer Clotting disorder Breast cancer Lung cancer Past Surgical History Surgical History History of total right knee replacement 09/29/22 [facility] Nausea and vomiting after administration of anesthetic agent S/P right knee arthroscopy (09/06/20) History of oral surgery History of colonoscopy History of squamous cell carcinoma excision S/P rotator cuff repair Right shoulder - 03/17/[address] Gonzalez/ [employer] H/O local excision of skin lesion in office left shoulder 10/29/2017 H/O ovarian cystectomy H/O tooth extraction age 27 H/O laparoscopy x3 H/O esophagogastroduodenoscopy Dr. Quinn H/O cystoscopy Dr. Priyanka BURK, stretched Urethra Past Anesthesia History No Family Hx of Anesthesia Complications and Other (Emotional/crying with anesthesia emergence after remote WTE) History of PONV No Hx of Motion Sickness and History of PONV (with hysterectomy) Social History Smoking Status: Never smoker Do You Dip or Chew Tobacco: No Hx Alcohol Use: Yes Alcohol type: beer alcohol intake frequency: a few times a week Hx Substance Use: No substance use type: does not use Review of Systems Patient denies chest pain, shortness of breath, dyspnea on exertion, fever, chills, cough, wheezing, palpitations. Physical Exam Vital Signs VITALS BP 119/80 P 75 TEMP 97.8 SP02 100%RA RESP 16 PHYSICAL Full cervical extension range of motion. Full TMJ range of motion. TMD 3 finger breaths Mallampati Score 2 Dentition: intact, + crowns (several) Lungs: clear throughout to auscultation Cardiac: regular rate and rhythm, no murmurs noted Spine: normal Carotid arteries: negative bruit Extremities: no LE edema Lab Results Anesthesia Preop Results Results Anesthesia Widget: WBC 6.24 K/ul (4.8-10.8) 03/10/23 Hgb 13.1 g/dl (12.0-16.0) 03/10/23 Hct 39.1 % (37.0-47.0) 03/10/23 Plt 238 K/uL (130-400) 03/10/23 Na 137 mmol/L (136-145) 03/10/23 K 4.0 mmol/L (3.5-5.1) 03/10/23 Cl 103 mmol/L (98-107) 03/10/23 CO2 27 mmol/L (21-32) 03/10/23 BUN 18 mg/dl (6-23) 03/10/23 Creat 0.66 mg/dl (0.6-1.2) 03/10/23 Glucose Level 87 mg/dl (70-99(Fasting)) 03/10/23 PT 10.7 Seconds (9.0-12.0) 03/10/23 PTT 30 Seconds (21-31) 03/10/23 INR 1.0 (0.9-1.1) 03/10/23 Blood Type O Positive 03/10/23 Antibody Screen NEGATIVE 03/10/23 Testing Electrocardiogram Date: 09/02/22 NSR at 76bpm. Chest X-Ray Date: 09/02/22 FINDINGS: PA and lateral chest radiographs are obtained. No prior studies are available for comparison at the time of dictation. The cardiomediastinal silhouette is unremarkable. The lungs and pleural spaces are clear. There is no pneumothorax. The skeletal structures are osteopenic. The bony thorax appears intact. IMPRESSION: No active disease in the chest.
[2023-04-06] MEDS ORDERED: ceFAZolin 2000MG 2,000 MG/15 ML SYR IV SCH (06:00)
[2023-04-06] MEDS ORDERED: LR 60ML/HR IV SCH (06:00)
[2023-04-06] MEDS ORDERED: dexAMETHasone 4 MG TAB PO SCH (06:00)
[2023-04-06] MEDS ORDERED: GABAPENTIN 600 MG DOSE PO SCH (06:00)
[2023-04-06] MEDS ORDERED: FAMOTIDINE 20 MG TAB PO SCH (06:00)
[2023-04-06] MEDS ORDERED: ACETAMINOPHEN 500 MG TAB PO SCH (06:00)
[2023-04-06] MEDS ORDERED: LR 500ML BOLUS, THEN 15ML/HR IV SCH (06:00)
[2023-04-06] MEDS ORDERED: TRANEXAMIC ACID 1,000 MG **IV Pre-op IV SCH (06:00)
[2023-04-06] MEDS ORDERED: TRANEXAMIC ACID 1,000 MG **IV Intra-op IV SCH (06:00)
[2023-04-06] MEDS ORDERED: Ketorolac (*for OR use only*) 30 MG, dexAMETHasone 4 MG, KETAMINE HCL (**OR use only) 1... INFIL SCH (06:00)
[2023-04-06] MEDS ORDERED: BUPIVACAINE 0.5 % 5 MG/1 ML PF 10ML VIAL ONE (06:13)
[2023-04-06] MEDS ORDERED: ROPIVACAINE 0.5% 5 MG/ML 30 ML VIAL ONE (06:13)
[2023-04-06] MEDS ORDERED: ONDANSETRON INJ 2 MG/ML 2 ML VIAL IV PRN ×2 (06:32→10:12)
[2023-04-06] MEDS ORDERED: ePHEDrine sulfate 50 MG/ML AMP IV PRN (06:32)
[2023-04-06] MEDS ORDERED: ATROPINE SULFATE 0.1 MG/ML 10ML SYR IV PRN (06:32)
[2023-04-06] MEDS ORDERED: fentaNYL citrate PF 100 MCG/2 ML VIAL IV PRN (06:32)
--- NOTE | 2023-04-06 06:37 | History & Physical Bridge Note ---
Date of Service April 06, 2023 History & Physical Bridge Note I have examined the patient, reviewed the History & Physical and in the interval since the performance of the History & Physical I have noted the following changes of clinical significance: no changes noted
[2023-04-06] MEDS ORDERED: MIDAZOLAM HCL 1 MG/ML 2ML VIAL ONE ×2 (06:38)
[2023-04-06] MEDS ORDERED: fentaNYL citrate PF 100 MCG/2 ML VIAL ONE (06:38)
[2023-04-06] MEDS ORDERED: ORTHO JOINT ANESTHETIC ONE (07:18)
[2023-04-06] MEDS ORDERED: PROPOFOL IV EMULSION 10 MG/ML 20 ML VIAL IV ONE (07:34)
[2023-04-06] MEDS ORDERED: LIDOCAINE 2% 2 ML VIAL/AMP(20MG/ML) INFIL ONE (07:34)
--- NOTE | 2023-04-06 07:56 | Operative Report ---
PG Post Operative Report Pre & Post Diagnosis Operation Date: 04/06/23 07:00 Pre-Op Diagnosis: DJD Knee Left Post-Op Diagnosis: DJD Knee Left I identified the patient and participated in the time-out.: Yes Procedure Operation Date: 04/06/23 07:00 Actual Procedures p Left Total Knee Arthroplasty(Left) - Rikki Padilla DO Surgeon Rikki Padilla DO Product Development Worker Rikki Torres PA-C Estimated Blood Loss 30 Findings Consistent with Post-Op Diagnosis Specimens Right femoral tibial bone Description of Procedure Implants used: I used a [employer] Persona total knee arthroplasty system with a size 7 narrow femur, D tibia, 28 oval patella, and a size 10 medial congruent polyethylene bearing. All components were cemented in place with Biomet cement. Ender arrived [facility] for the above procedure. She was seen in the preoperative holding area and the operative extremity was identified and signed. She was given a preoperative antibiotic, TXA, a spinal anesthetic and an adductor nerve block. She was taken back to the operating room and laid on the table in supine position. She was given basic sedation. The operative knee was then prepped and draped in sterile fashion. A timeout was done, and the patient and the operative extremity was properly identified. A midline incision was made directly over the patella. Dissection was taken down to the extensor mechanism. A midvastus arthrotomy was used. The medial retinaculum was released and the fat pad was mostly excised. The knee was flexed and the ACL, PCL, and meniscus were removed. A drill was sent down the center of the femoral canal followed by an intramedullary misty. Off that misty a distal femoral cutting block was placed. 9 mm was resected off the distal femur at 5 of valgus. A posterior referencing AP sizing guide was then placed on the distal femur. The femur measured to be a size 7. 2 drill holes were placed in 3 of external rotation. A 4-in-1 cutting block was then impacted into place. Anterior, posterior, and chamfer cuts were then made. The proximal tibia was then exposed. An external tibial alignment guide was placed. A tibial cut guide was then anchored in place and the proximal tibia was then resected. The posterior aspect of the knee was then opened up and any additional meniscus fragments and osteophytes were removed. The tibia measured to be a size D. The tibial plate was then placed in the appropriate rotation and the tibia was drilled and punched. Trial components were then placed. I used a size 10 medial congruent polyethylene insert. The knee was brought through a full range of motion and felt to be stable. The peg holes for the femoral component were then drilled. The patella was then everted and 9 mm was resected off the posterior aspect of the patella. The patella measured to be a size 28 oval. 3 peg holes were then drilled. A trial patella was placed. The knee was once again brought through a full range of motion and felt to be stable. Trial components were then removed. The surrounding soft tissues were injected with 100 cc of an orthopedic pain control cocktail. All components were then cemented into place with Biomet cement. The final polyethylene insert was then snapped into place. Once cement was dry the tourniquet was deflated. Hemostasis was obtained. A dilute betadyne lavage was then done for 3 minutes. The joint was then irrigated with normal saline solution. The midvastus arthrotomy was then closed with #1 Vicryl suture. The skin was closed with 2-0 Vicryl, 3-0V lock suture, and olive. A soft compressive dressing was placed. She was then transferred to a hospital bed and taken to the postanesthesia care unit in stable condition. She tolerated the procedure well. Rikki Torres PA-C, was present for the entire procedure. He was critical for patient positioning, prepping, draping, retraction exposure, wound closure and application of sterile dressing. I attest to the content of the Intraoperative Record and any orders documented therein. Any exceptions are noted below.
--- NOTE | 2023-04-06 09:16 | XRay Report ---
LEFT KNEE 2 VIEWS History: Left total knee arthroplasty. Degenerative arthritis. Postop. FINDINGS: The patient is status post a left total knee arthroplasty. The hardware is intact. No fract ure or dislocation. Skin olive are in place. IMPRESSION: Left total knee arthroplasty. No evidence for hardware complication. ACT 112: Negative or not required by law.. Electronically signed by: Marvel Whipple M.D. 04/06/2023 9:15 AM
--- NOTE | 2023-04-06 09:32 | Anesthesiology Progress Note ---
Date of Service April 06, 2023 Anesthesia Post Procedure Vital Signs Vital Signs: Temp Pulse Pulse Resp BP Pulse Ox O2 Del Method 04/06/23 09:25 97.5 F L 74 12 147/88 H 97 Room Air 04/06/23 09:15 73 13 136/91 100 Oxymask 04/06/23 09:05 74 12 150/93 H 100 Oxymask 04/06/23 08:55 70 16 140/78 100 Oxymask 04/06/23 08:45 69 12 136/79 100 Oxymask 04/06/23 08:35 71 13 139/81 100 Oxymask 04/06/23 08:25 70 12 130/81 100 Oxymask 04/06/23 08:17 97.9 F 71 16 124/80 100 Oxymask 04/06/23 06:01 98.2 F 86 18 142/91 H 97 Room Air O2 Flow Rate 04/06/23 09:25 04/06/23 09:15 3 04/06/23 09:05 4 04/06/23 08:55 4 04/06/23 08:45 4 04/06/23 08:35 4 04/06/23 08:25 4 04/06/23 08:17 6 04/06/23 06:01 Transfer of Care Handoff Completed per policy Notes Mental Status: alert / awake / arousable and participated in evaluation Patient Amnestic to Procedure: Yes Nausea / Vomiting: adequately controlled Pain: adequately controlled Airway Patency, RR, SpO2: stable & adequate BP & HR: stable & adequate Hydration State: stable & adequate Neuraxial Anesthesia: was administered and sensory block is resolving Anesthetic Complications: no major complications apparent and Pt Satisfied with anesthetic care
[2023-04-06] MEDS ORDERED: bisacodyL 10 MG SUPP PR PRN (10:12)
[2023-04-06] MEDS ORDERED: BUTALBITAL/ACETAMIN/CAFFEINE TAB PO PRN (10:12)
[2023-04-06] MEDS ORDERED: MAGNESIUM HYDROXIDE SUSP 30 ML UDC PO PRN (10:12)
[2023-04-06] MEDS ORDERED: BACLOFEN 10 MG TAB PO PRN (10:12)
[2023-04-06] MEDS ORDERED: oxyCODONE HCL IR 5 MG TAB (IMMEDIATE RELEASE) PO PRN (10:12)
[2023-04-06] MEDS ORDERED: SODIUM CHLORIDE 0.9% 1,000 ML IV SCH (10:12)
[2023-04-06] MEDS ORDERED: HYDROmorphone INJ 0.5 MG/0.5 ML SYR IV PRN (10:12)
[2023-04-06] MEDS ORDERED: NALOXONE HCL 0.4 MG/1 ML VIAL/CARP IV PRN (10:12)
[2023-04-06] MEDS ORDERED: CETIRIZINE HCL 10 MG TABLET PO PRN (10:12)
[2023-04-06] MEDS ORDERED: METOCLOPRAMIDE HCL INJ 5 MG/ML 2 ML VIAL IV PRN (10:12)
[2023-04-06] MEDS ORDERED: FLUTICASONE PROPIONATE NA SPR 16 GM BTL PRN (10:33)
[2023-04-06] MEDS: DULoxetine HCL 60 MG CAP PO SCH (11:12)
[2023-04-06] MEDS: MULTIVITAMIN TAB PO SCH (11:13)
[2023-04-06] MEDS: KETOROLAC 30 MG/ML VIAL IV SCH ×3 (11:13→22:16)
[2023-04-06] MEDS: ASPIRIN 81 MG ECTAB PO SCH ×2 (11:14→21:06)
[2023-04-06] MEDS: DOCUSATE SODIUM 100 MG CAP PO SCH ×2 (11:14→21:09)
[2023-04-06] MEDS ORDERED: traMADol HCL 50 MG TABLET PO SCH (13:00)
[2023-04-06] MEDS: ACETAMINOPHEN 500 MG TAB PO SCH ×2 (14:09→21:08)
[2023-04-06] MEDS: ceFAZolin 2000MG 2,000 MG/15 ML SYR IV SCH ×2 (14:16→22:16)
[2023-04-06] MEDS ORDERED: traMADol HCL 50 MG TABLET PO PRN (14:53)
[2023-04-06] MEDS ORDERED: SENNA 8.6 MG TAB PO SCH (21:00)
[2023-04-06] MEDS ORDERED: LOSARTAN POTASSIUM 25 MG TAB PO SCH (21:00)
[2023-04-06] MEDS ORDERED: DULoxetine HCL 20 MG CAP PO SCH (21:00)
[2023-04-07] MEDS: KETOROLAC 30 MG/ML VIAL IV SCH ×2 (05:12→09:32)
[2023-04-07] MEDS: ACETAMINOPHEN 500 MG TAB PO SCH (05:12)
[2023-04-07] MEDS ORDERED: dexAMETHasone 4 MG TAB PO SCH (08:00)
[2023-04-07] MEDS: ASPIRIN 81 MG ECTAB PO SCH (08:27)
[2023-04-07] MEDS: DOCUSATE SODIUM 100 MG CAP PO SCH (08:28)
[2023-04-07] MEDS: DULoxetine HCL 60 MG CAP PO SCH (08:28)
[2023-04-07] MEDS: MULTIVITAMIN TAB PO SCH (08:28)
--- NOTE | 2023-04-07 10:00 | Orthopedic Progress Note ---
Date of Service April 07, 2023 Assessment & Plan (1) Status post left knee replacement: Overall she is doing quite well today with good pain control to the left knee. She is on aspirin for DVT prophylaxis. She participated well with physical therapy working on ambulation and range of motion exercises. She can be discharged later on today. She will follow-up with orthopedics in 2 weeks for postoperative care. Iraida Handley was seen and evaluated at bedside this morning resting comfortably in no apparent distress. She states that she has worked with physical therapy this morning and was able to eat do ambulation and range of motion exercises. She notes that she has good pain control to the left knee. She denies any other issues today. Review of Systems All systems reviewed & are unremarkable except as noted in HPI & below. Physical Exam . On physical examination of the left knee, dressings are clean, dry, intact. Her left leg is out in full extension. She has active plantarflexion dorsiflexion of the left ankle. +2 DP and PT pulses. Less than 2-second capillary refill. Normal sensation. Neurovascular intact. Results & Data Results & Data Laboratory Results . Diagnostic Findings . Postoperative x-rays of the left knee show prosthesis to be in anatomical alignment with no signs of loosening or fracture complication. PG Care Time/CCT Total # of Minutes Spent Total Time Spent with Patient: Total time spent is greater than 50% in coordination of care (as documented) at patient's floor/unit and/or counseling patient: Coding Level of Care Code 20066 Post Operative Follow-Up Diagnoses Status post left knee replacement Z96.652
--- NOTE | 2023-04-07 10:02 | Discharge Summary ---
Date of Service April 07, 2023 Principal Diagnosis Same as "Discharge Diagnosis" noted below under Discharge Instructions. Discharge Exam . On physical examination of the left knee, dressings are clean, dry, intact. Her left leg is out in full extension. She has active plantarflexion dorsiflexion of the left ankle. +2 DP and PT pulses. Less than 2-second capillary refill. Normal sensation. Neurovascular intact. Discharge Data Procedures Performed Operation Date: 04/06/23 07:00 Actual Procedures p Left Total Knee Arthroplasty(Left) - Rikki Padilla DO Ordered Studies 04/06/23 05:00 US - OR guided needle placemen Routine Hospital Course (1) Status post left knee replacement: On April 06, 2023 Ender arrived at [facility] and underwent a left total knee arthroplasty with Dr. Padilla without any complications. She had a spinal anesthetic. Postoperatively, she was started on aspirin for DVT prophylaxis and transferred to the general orthopedic floor in stable condition. Her hospital course was uneventful. On postoperative day #1, her vital signs were stable and her pain was well-controlled. She participated well with physical therapy doing ambulation and range of motion exercises. She was then discharged home in stable condition. She is going to follow-up in 2 weeks with orthopedics for postoperative care. PG Care Time/CCT Total # of Minutes Spent Total Time Spent with Patient: Total time spent is greater than 50% in coordination of care (as documented) at patient's floor/unit and/or counseling patient: Discharge Plan Discharge Items Patient Disposition: Home - Home Health Services Reason For Visit: DJD Knee Left Discharge Diagnosis: Same Activity: Per Instructions section Non-emergency contact: Surgeon Call non-emergency contact if: your temperature is above 101.5, your wound has increased redness and your wound has increased drainage Follow-up/Referrals: Patrick Marquez MD [Primary Care Provider] - Diet: Regular Addtl Attending Provider Instructions: Activity and Therapy Recommendations: * If you are using [facility] then therapy will be provided at your home until they feel you have accomplished all of your goals. * If you are using [facility] then Physical Therapy will be provided until they feel you are ready to start Outpatient Physical Therapy. * If you are not using home therapy then Outpatient Physical Therapy should start about 3-5 days from your day of surgery. Therapy will last about 6-10 weeks * It is important not to put a pillow under your knee when you are relaxing or sleeping. It is just as important to make sure you are getting your knee perfectly straight as it is to regain your knee bend. * You were shown a series of exercises in the hospital. Do these exercises three times each day including the exercises you were shown in physical therapy. * Get up and walk several times each day. For the first four weeks, try not to stand or walk for more than one hour at a time. If you do stand or walk for more than one hour, you will not hurt anything, but your leg will likely swell. * As you feel comfortable, you may change from the walker or crutches to a cane and then to independent walking. Medications: * Narcotic You will likely be sent home from the hospital with a prescription for the narcotic pain medication that worked best throughout your stay. * Cefadroxil -take the antibiotic twice a day for 10 days to help prevent inf ection. * Aspirin Most patients will be required to take Aspirin 81mg twice a day for 6 weeks after surgery. This is obtained [id number] and a prescription is not necessary. * Other medications may be prescribed for specific circumstances. If you have any questions, please call the office at . * Resume previous home medications unless otherwise instructed TEDs/Elastic Stockings: The white elastic stockings help limit swelling and prevent blood clots from forming in your legs.~ The more you wear them, the more they work. Wear them for six weeks. Dressing Care: The dressing can be changed after physical therapy on postop day #1. Daily dry dressing changes for a few days, especially if the incision is still draining some. If the incision is not draining then you may leave the olive open to air. If there is a little bit of drainage or if the olive are getting stuck on your clothing then cover the incision with a dry dressing. The olive will be removed at your 2 week follow-up appointment. Showering: You may shower 5 days from the day of surgery as long as the incision is no longer draining. You may shower with the olive exposed. Let soapy water run over the olive and pat them dry. Do not scrub or soak the incision. Things To Watch For: * Drainage from the incision site that occurs more than one week after your surgery. * Increased redness at the incision site. * Fever above 102 degrees Fahrenheit. * Unusual chest pain or shortness of breath. * Call [facility] at with any of the above problems Follow-Up Visit: Follow-up with Dr. Padilla's PA (Rikki Torres) 2-3 weeks after your day of surgery. He will remove your olive and answer any questions. If you have any additional questions or concerns, Dr Padilla is usually in the office at the same time and will be available An appointment was probably scheduled when you signed-up for surgery in the office. If you have any questions call Office Instructions: More detailed instructions as well as Frequently Asked Questions were provided in a folder by our office when you signed-up for surgery. Please review these instructions when you get home. If you have any further questions or concerns, please feel free to call the office at [phone] Pending Studies at Discharge: No Stand-Alone Forms: My [facility], Pain - Opioid Pain Management, Smoking Cessation Medications and DC Order Prescriptions: New aspirin 81 mg Tablet,Delayed Release (Dr/Ec) 81 mg PO BID 42 Days Qty: 0 0RF tramadol 50 mg Tablet 50 mg PO Q6 PRN (Reason: pain) Qty: 30 0RF cefadroxil 500 mg capsule 500 mg PO BID 10 Days Qty: 20 0RF Continued [id number] 50-325-40 mg tablet 1 - 2 tab PO BID PRN (Reason: headache) Qty: 30 0RF Rx Instructions: no more than 2 days per week Ongoing therapy Supervising physician Patrick [facility]od[facility] [id number] olmesartan 5 mg tablet 5 mg PO QPM Qty: 90 1RF calcium carbonate 600 mg calcium (1,500 mg) tablet 600 mg PO BID cetirizine 10 mg tablet 10 mg PO HS PRN (Reason: Allergic Symptoms) Qty: 30 Patient Comments: Patient has not taken in over 1 year Nurtec ODT 75 mg tablet,disintegrating 75 mg PO DAILY PRN (Reason: migraine headache) Qty: 10 1RF duloxetine 20 mg capsule,delayed release(DR/EC) 20 mg PO HS Qty: 30 2RF Rx Instructions: take 20mg in evening, 60 in the AM Flonase Sensimist 27.5 mcg/actuation spray,suspension 2 sprays INTNAS DAILY PRN (Reason: nasal congestion) Qty: 5.9 3RF Patient Comments: Patient states she has not used in over 1 year Rx Instructions: into each nostril baclofen 10 mg tablet 10 mg PO HS PRN (Reason: Muscle Spasm) Qty: 30 0RF duloxetine 60 mg capsule,delayed release(DR/EC) 60 mg PO QAM multivitamin Tablet 1 tab PO QAM ascorbic acid (vitamin C) [Vitamin C] 500 mg Tablet 500 mg PO QAM Discontinued amoxicillin 500 mg tablet 2,000 mg PO ONCE Qty: 4 3RF Rx Instructions: 4 tabs 1 hour prior to procedure ibuprofen 200 mg Tablet 400 mg PO Q6H PRN (Reason: Pain) Krames/Other Patient Handouts: DVT Post Op Prevention Admission Data Admit Date/Time: 04/06/23 08:20 Attending Provider: Rikki Padilla Admit Provider: Rikki Padilla Primary Care Provider: Patrick Marquez V. Other Interventions: Discharge Summary Assessment (RN) Last Done: 04/07/23 09:41
== END 2023-04-07 10:14 | disposition home health service (06) ==
LOC: ASU 05:18 → 3E 05:18